=== PATIENT | female | born 1965 | race Caucasian/White ===

== ENCOUNTER 2020-01-26 08:17 | Emergency (ER) | payer SELFPAY ==
[2020-01-26 08:30] VITALS: BMI 19.0
--- NOTE | 2020-01-26 09:38 | PDOC ---
History of Present Illness - General Chief Complaint: Shortness of Breath Stated Complaint: SENT BY PCP (SOB) Time Seen by Provider: 01/26/20 08:48 - History of Present Illness Initial Comments: 01/26/20 09:28 54yo F with PMH of Covid in August 2019 (not hospitalized) who presents to the ER for SOB. She states she has had intermittent SOB since having Covid, and it became worse in the last few days. She was at a [employer] over the weekend with her , and while they wore masks, no one else did. She had subjective fevers, headache, chest burning, sore throat, congestion earlier in the week, but now just feels SOB. She has some leftover doxycycline from when she had covid and took half a pill this morning. Called PCP who told her to go to urgent care for a Covid test. Was tachycardic to 97 at urgent care, so they sent her to the ER for rule out PE. PMH/PSH/meds: none Allergies: pennicilin, azithromycin, sulfa, aspirin ROS GENERAL/CONSTITUTIONAL: No fever or chills. No weakness. HEAD, EYES, EARS, NOSE AND THROAT: No change in vision. No ear pain or discharge. No sore throat. CARDIOVASCULAR: No chest pain or shortness of breath RESPIRATORY: No cough, wheezing, or hemoptysis. GASTROINTESTINAL: No nausea, vomiting, diarrhea or constipation. GENITOURINARY: No dysuria, frequency, or change in urination. MUSCULOSKELETAL: No joint or muscle swelling or pain. No neck or back pain. SKIN: No rash NEUROLOGIC: No headache, vertigo, loss of consciousness, or change in strength/sensation. ENDOCRINE: No increased thirst. No abnormal weight change HEMATOLOGIC/LYMPHATIC: No anemia, easy bleeding, or history of blood clots. ALLERGIC/IMMUNOLOGIC: No hives or skin allergy. PE GENERAL: Awake, alert, and fully oriented, in no acute distress HEAD: No signs of trauma, normocephalic, atraumatic EYES: PERRLA, EOMI, sclera anicteric, conjunctiva clear ENT: Auricles normal inspection, hearing grossly normal, nares patent, oropharynx clear without exudates. Moist mucosa NECK: Normal ROM, supple, no lymphadenopathy, JVD, or masses LUNGS: No distress, speaks full sentences, clear to auscultation bilaterally HEART: Regular rate and rhythm, normal S1 and S2, no murmurs, rubs or gallops, peripheral pulses normal and equal bilaterally. ABDOMEN: Soft, nontender, normoactive bowel sounds. No guarding, no rebound. No masses EXTREMITIES : Normal inspection, Normal range of motion, no edema. No clubbing or cyanosis. NEUROLOGICAL: Normal speech, normal gait, no focal sensorimotor deficits SKIN: Warm, Dry, normal turgor, no rashes or lesions noted Vital Signs Temp Pulse Resp BP Pulse Ox 98.3 F 103 H 20 152/83 100 01/26/20 08:19 01/26/20 08:19 01/26/20 08:19 01/26/20 08:19 01/26/20 08:19 54yo F with PMH of Covid in August 2019 (not hospitalized) who presents to the ER for SOB and is tachycardic to 103. DDx includes PE, ACS, pneumonia, viral URI, myocarditis, Covid-reinfection. Patient states she had an outpatient ECHO that was normal, and was scheduled for an EGD, but was unable to get one. -EKG -CBC, CMP, coags, cardiac enzymes -CT PE 01/26/20 18:40 EKG: NSR, rate 85, normal axis and intervals, no ischemic ST-T changes Labs: no emergent values CT PE: negative for PE or other acute pathology DC home with PCP f/u Past History - Medical History Allergies/Adverse Reactions: Allergies Allergy/AdvReac Type Severity Reaction Status Date / Time No Known Allergies Allergy Verified 01/26/20 08:19 COPD: No - Reproductive History Is Patient Now?: No - Psycho-Social/Smoking History Smoking History: Never smoked Have you smoked in the past 12 months: No - Substance Abuse Hx (Audit-C & DAST Scrn) How often the patient has a drink containing alcohol: Never Score: In Men: 4 or > Positive; In Women: 3 or > Positive: 0 Screen Result (Pos requires Nsg. Audit-10AR): Negative In the last yr the pt used illegal drug/Rx for NonMed reason: No Score: Yes response is considered Positive: 0 Screen Result (Positive result requires Nsg. DAST-10): Negative *Physical Exam - Vital Signs Last Vital Signs Temp Pulse Resp BP Pulse Ox 98.3 F 103 H 20 152/83 100 01/26/20 08:19 01/26/20 08:19 01/26/20 08:19 01/26/20 08:19 01/26/20 08:19 ED Treatment Course - LABORATORY CBC & Chemistry Diagram: 01/26/20 09:00 01/26/20 09:00 - ADDITIONAL ORDERS Additional order review: Laboratory Results 01/26/20 08:51 POC Glucometer 112 01/26/20 08:51 POC Glucometer 112 - RADIOLOGY Radiology Studies Ordered: Category Date Time Status CHEST CTA [CT] Stat CT Scan 01/26/20 09:10 Ordered Discharge - Discharge Information Problems reviewed: Yes Clinical Impression/Diagnosis: Shortness of breath, Sinus tachycardia Condition: Improved Disposition: HOME - Admission No - Follow up/Referral Referrals: Jonathan Zaman [Primary Care Provider] - - Patient Discharge Instructions Additional Instructions: You were seen in the ER for shortness of breath. We did a physical exam, EKG, labs, and a CT-scan of your lungs, which did not show any emergent problems. Please follow up with your PCP within three days. Please return to the ER if you have difficulty breathing, chest pain, fever, or any concerning symptoms. - Post Discharge Activity
[2020-01-26 10:00] LABS: BASO % 0.3 % (0-2.0); EOS % 1.8 % (0-4.5); HEMATOCRIT 38.7 % (32.4-45.2); HEMOGLOBIN 12.8 GM/dL (10.7-15.3); LYMPH % 30.1 % (8-40); MCH 28.1 pg (25.7-33.7); MCHC 33.2 g/dl (32.0-36.0); MEAN CELL VOLUME 84.6 fl (80-96); MEAN PLT VOLUME 7.3 fl (7.5-11.1); NEUT % 59.8 % (42.8-82.8); PLATELET COUNT 396 K/MM3 (134-434); RBC 4.57 M/mm3 (3.60-5.2); RDW 13.2 % (11.6-15.6); WHITE BLOOD COUNT 6.3 K/mm3 (4.0-10.0)
[2020-01-26 10:01] LABS: INR 0.92 (0.83-1.09); PROTHROMBIN TIME (PATIENT) 10.8 SEC (9.7-13.0)
[2020-01-26 10:03] LABS: ACTIVATED PTT 32.3 SECONDS (25.2-36.5)
[2020-01-26 10:16] LABS: ALBUMIN 4.2 g/dl (3.4-5.0); ALK PHOS 64 U/L (45-117); ANION GAP 6 MMOL/L (8-16); BILIRUBIN,TOTAL 0.2 mg/dL (0.2-1); BLOOD UREA NITROGEN 10.8 mg/dL (7-18); CALCIUM 9.4 mg/dL (8.5-10.1); CHLORIDE 103 mmol/L (98-107); CO2 30 mmol/L (21-32); CREATININE 0.6 mg/dL (0.55-1.3); GLUCOSE,RANDOM 115 mg/dL (74-106); SGOT/AST 15 U/L (15-37); SGPT/ALT 23 U/L (13-61); SODIUM 138 mmol/L (136-145)
--- NOTE | 2020-01-26 12:15 | PDOC ---
Documentation entered by Demetrius Castaneda SCRIBE, acting as scribe for Lacey Vargas MD. Lacey Vargas MD: This documentation has been prepared by the Dmitry brunson inDemetrius SCRIBE, under my direction and personally reviewed by me in its entirety. I confirm that the documentation accurately reflects all work, treatment, procedures, and medical decision making performed by me. Attending Attestation - Resident Resident Name: CobyDelmer - ED Attending Attestation I have performed the following: I have examined & evaluated the patient, The case was reviewed & discussed with the resident, I agree w/resident's findings & plan, Exceptions are as noted - HPI HPI: 01/26/20 10:39 The patient is a 54 year old female with a significant past medical history of positive COVID-19 (August) who presents to the emergency department, sent from PCP, for evaluation of shortness of breath that began in August and has worsened over the past few days. The patient reports associated subjective fevers, sore t hroat, congestion, and resolved chest burning. She endorses taking half a pill of doxycycline this morning. She called her PCP who sent her to Urgent Care for a COVID-19 test where she was found to be tachycardic to 97, so Urgent Care sent her to the ED to rule out PE. The patient denies abdominal/back pain, cough, nausea, vomiting, and/or any GI symptoms. Denies any symptoms. Denies any other symptoms. Allergies: NKA PCP: Dr. Zaman - Physicial Exam PE: 01/26/20 11:40 01/26/20 12:04 01/26/20 12:05 Agree with resident exam. Patient is alert and oriented and in no acute distress. Lungs are clear b/l. CV rrr no m/r/g abdomen: soft,non tender, non distended, no guarding or rebound. - Medical Decision Making 01/26/20 12:13 Pt presents to the ED complaining of worsening of her shortness of breath. Recovered from COVID in august. COncern for reinfection with covid, other URI, PE. Will check Ct PE. COVID test sent by urgent care. Discharge - Discharge Information Problems reviewed: Yes Clinical Impression/Diagnosis: Shortness of breath, Sinus tachycardia Condition: Improved Disposition: HOME - Follow up/Referral Referrals: Jonathan Zaman [Primary Care Provider] - - Patient Discharge Instructions Additional Instructions: You were seen in the ER for shortness of breath. We did a physical exam, EKG, labs, and a CT-scan of your lungs, which did not show any emergent problems. Please follow up with your PCP within three days. Please return to the ER if you have difficulty breathing, chest pain, fever, or any concerning symptoms. - Post Discharge Activity
[2020-01-26 12:54] VITALS: BP 133/89; PULSE 89; TEMP 98.5
--- NOTE | 2020-01-26 14:03 | EKG ---
Test Reason : Blood Pressure : / mmHG Vent. Rate : 085 BPM Atrial Rate : 085 BPM P-R Int : 142 ms QRS Dur : 082 ms QT Int : 326 ms P-R-T Axes : 076 063 051 degrees QTc Int : 387 ms NORMAL SINUS RHYTHM NORMAL ECG NO PREVIOUS ECGS AVAILABLE Confirmed by ANATOLY MCKEON MD ([id number]) on 01/26/2020 2:03:07 PM Referred By: Confirmed By:ANATOLY MCKEON MD
== END 2020-01-26 12:55 | disposition home or self-care (01) ==
LOC: JER 08:17
DX: R06.02 Shortness of breath (principal)
CPT/HCPCS: 36415; 71275-TC; 80053; 82550; 82962; 84484; 85025; 85610; 85730; 93005; 93010; 99285-25; Q9967